=== PATIENT | female | born 1975 | race Caucasian/White ===

== ENCOUNTER → 2021-01-28 02:41 | Outpatient (CLI) | payer OTHER, SELFPAY ==
[2021-01-28 19:36] LABS: SARS-CoV-2 RNA PCR Negative
== END ==
PROVIDERS: Visit Provider Obstetrics & Gynecology Gynecology
DX: R68.89 Other general symptoms and signs (principal); Z20.822 Contact with and (suspected) exposure to COVID-19
CPT/HCPCS: C9803; U0003; U0005

== ENCOUNTER 2021-01-31 02:11 | Day surgery (SDC) | payer OTHER, SELFPAY ==
[2021-01-19 10:41] VITALS: BMI 38.9
--- NOTE | 2021-01-31 07:26 | WPDHPUPDATE1 ---
History and Physical Update Update Date/Time: 01/31/21 07:26 History and Physical has been reviewed, including an updated exam of the patient. There are NO changes in the patient's condition. Risks, benefits, and alternatives have been discussed and questions answered. Patient agrees to proceed with procedure.
--- NOTE | 2021-01-31 07:26 | PM.HPGS ---
History of Present Illness History of Present Illness Consent: Risks, benefits, and alternatives have been discussed and questions answered. Patient agrees to proceed with procedure. Chief complaint: menorrhagia with anemia Narrative: Kimberley Lewis is a 45 year old female with prolonged bleeding for approximately 12-14 days at a time. Cycles are very heavy with large clots. Hemoglobin in October was the 8.6 per her primary physician repeat in late December was 13.3. Pelvic ultrasound was performed and intramural fibroids were noted no subserosal ones or submucosal ones are indicated. It is recommended to proceed with hysteroscopy for further evaluation. Risks of infection, bleeding, and perforation were reviewed. If fibroid is present submucosally the risk of fluid imbalance is also discussed. Patient voices understanding and agrees to proceed. Review of Systems Review of Systems: Narrative: not repeated day of surgery; patient states no changes in status PMFSH Past Medical History Medical History (Updated 01/31/21 @ 07:32 by Cindy Bo MD) Graves disease Hyperlipidemia (normal spontaneous vaginal delivery) Sleep apnea Surgical History Surgical History (Updated 01/31/21 @ 07:31 by Cindy Bo MD) S/P tonsillectomy Status post left breast lumpectomy Social History Social History Smoking status: Never smoker Living arrangements: with family Meds Home Medications and Allergies Home Medications Medication Instructions Recorded Confirmed Type calcium carbonate [Gaurav-500] 500 mg PO DAILY 01/19/21 01/19/21 History cholecalciferol (vitamin D3) 50 mcg PO DAILY 01/19/21 01/19/21 History [Vitamin D3] ferrous sulfate [FeroSul] 975 mg PO TID 01/19/21 01/19/21 History methimazole 5 mg PO EVERY OTHER DAY 01/19/21 01/19/21 History multivitamin 1 tablet PO DAILY 01/19/21 01/19/21 History Allergies Allergy/AdvReac Type Severity Reaction Status Date / Time sulfacetamide Allergy Intermediate Vomiting Verified 01/19/21 10:50 [From Sulfamide] Exam Const: General: comfortable and no acute distress : External Female Exam: normal external appearance Speculum Exam - Vagina: normal appearance of the vagina and vaginal bleeding Speculum Exam - Cervix: normal appearance of the cervix Bimanual exam- vagina & uterus: normal bimanual exam Bimanual Exam- Adnexa, other: normal adnexae Assessment and Plan Assessment and plan (1) Menorrhagia: Code(s): N92.0 - Excessive and frequent menstruation with regular cycle Status: Acute Assessment and Plan: plan to proceed with hysteroscopy and D&C
[2021-01-31] MEDS: ACETAMINOPHEN 500 MG TABLET 1000 MG PO (07:52)
--- NOTE | 2021-01-31 08:10 | WPDANESEPPF ---
Anes - Initial Pre Proc Eval Procedure: Operation Date: 01/31/21 09:00 Proposed Procedures p Hysteroscopy Dilation and Curettage With Possible Myosure - Cindy Bo MD Date/Time: 01/31/21 08:10 Surgeon: Cindy Bo MD Pre Op Diagnosis: menorrhagia with anemia Patient Data Age: 45 Gender: F Height: 1.6 m Weight: 99.79 kg Allergies Allergy/AdvReac Type Severity Reaction Status Date / Time sulfacetamide Allergy Intermediate Vomiting Verified 01/19/21 10:50 [From Sulfamide] Home Medications Medication Instructions Recorded Confirmed Type calcium carbonate [Gaurav-500] 500 mg PO DAILY 01/19/21 01/19/21 History cholecalciferol (vitamin D3) 50 mcg PO DAILY 01/19/21 01/19/21 History [Vitamin D3] ferrous sulfate [FeroSul] 975 mg PO TID 01/19/21 01/19/21 History methimazole 5 mg PO EVERY OTHER DAY 01/19/21 01/19/21 History multivitamin 1 tablet PO DAILY 01/19/21 01/19/21 History Patient hx anesthesia problems: none Family hx anesthesia problems: none PMFSH Past Medical History Medical History (Updated 01/31/21 @ 08:12 by Mitchell Shirley MD) Chronic GERD Graves disease Hyperlipidemia Menorrhagia (normal spontaneous vaginal delivery) Obesity Sleep apnea Surgical History Surgical History (Updated 01/31/21 @ 07:31 by Cindy Bo MD) S/P tonsillectomy Status post left breast lumpectomy Social History Social History Smoking status: Never smoker Living arrangements: with family Anes - Eval Final PreProcedure Day of Procedure 01/31/21 08:10 Patient weight: obese Heart: regular rate and rhythm Lungs: clear to auscultation and normal air movement Airway: Mallampati scale class II Neurological: alert and oriented Last oral intake: >/= 8 hours ASA classification: III Emergent: no Anesthetic plan: proceed Anesthesia type and monitoring: general GIVS and LMA Informed Consent: The patient's anesthetic plan and its attendant risks and benefits were discussed with the patient/family/POA. Questions were solicited and answers provided to the satisfaction of the patient/family/POA.
[2021-01-31 08:30] VITALS: BP 130/80; PULSE 88; RESP 16; TEMP 37.2; O2SAT 99
--- NOTE | 2021-01-31 09:50 | PM.PROC ---
Procedure Note - Detailed Date of procedure: 01/31/21 Pre-op diagnosis: menorrhagia with anemia Post-op diagnosis: same Procedure performed: D and C hysteroscopy Description of procedure: The patient is taken to the operating room and placed under anesthesia in the dorsal lithotomy position. She is prepped and draped in the usual sterile fashion. [facility] speculum was placed in the vagina and the cervix is grasped on the anterior lip with a tenaculum. The cervix was injected with 1% lidocaine in each quadrant. The uterus is sounded to 10-1/2cm. The cervix is serially dilated with Hegars. The diagnostic hysteroscope is placed with the stated findings. The diagnostic hysteroscope was removed and the sharp curette is used to sharply curette the endometrium until a good uterine cry was noted in all areas. A large amount of material was obtained consistent with a secretory appearance. All instruments are removed. Sponge, needle, and instrument counts are correct per the OR staff. Patient was awakened from anesthesia and taken to recovery in stable condition. Anesthesia: MAC and local Surgeon: Cindy Bo MD Estimated blood loss (mL): 5 Drains: No Packing: No Pathology: yes (Endometrial curettings) Complications: No immediate complications Condition: stable Disposition: PACU Findings: The uterus sounds to 10 in the hip cm and the endometrium appears grossly secretory. No discrete lesions are noted.
[2021-01-31 09:52] VITALS: BP 124/70; PULSE 72; RESP 20
[2021-01-31] MEDS: LACTATED RINGERS 1,000 ML 30 ML IV CONT (09:52)
[2021-01-31 10:20] VITALS: BP 134/65; PULSE 77; RESP 20
[2021-01-31 10:50] VITALS: BP 122/75; PULSE 72; RESP 20
== END 2021-01-31 11:00 | disposition home or self-care (01) ==
PROVIDERS: Visit Provider Obstetrics & Gynecology Gynecology
PROC: 0U5B8ZZ Destruction of Endometrium, Via Natural or Artificial Opening Endoscopic (ICD-10-PCS; CPT 58563; principal; 2021-01-31 09:00)
DX: N92.0 Excessive and frequent menstruation with regular cycle (principal); D64.9 Anemia, unspecified; K21.9 Gastro-esophageal reflux disease without esophagitis; E78.5 Hyperlipidemia, unspecified; G47.30 Sleep apnea, unspecified; E05.00 Thyrotoxicosis with diffuse goiter without thyrotoxic crisis or storm; E66.9 Obesity, unspecified; Z68.39 Body mass index [BMI] 39.0-39.9, adult
CPT/HCPCS: 58558; 88305; A9270; J2250; J2704; J3010; J7030; J7120

== ENCOUNTER 2021-04-22 08:09 | Outpatient (CLI) | payer OTHER, SELFPAY ==
[2021-04-22 08:21] LABS: Hematocrit 42.1 % (37.0-47.0); Hemoglobin 13.7 g/dL (12.0-15.0)
== END 2021-04-22 08:10 | disposition home or self-care (01) ==
LOC: ANHLAB 08:11
PROVIDERS: Visit Provider Anesthesiology
DX: Z01.818 Encounter for other preprocedural examination (principal); N92.0 Excessive and frequent menstruation with regular cycle; D64.9 Anemia, unspecified
CPT/HCPCS: 36415; 85014; 85018

== ENCOUNTER 2021-04-25 00:21 | Day surgery (SDC) | payer OTHER, SELFPAY ==
[2021-04-19 13:47] VITALS: BMI 39.0
--- NOTE | 2021-04-22 18:10 | WPDANESEPP ---
Anes - Eval Pre Procedure Procedure: Operation Date: 04/25/21 07:30 Proposed Procedures p Hysteroscopy With Maday Ablation - Cindy Bo MD Date/Time: 04/22/21 18:10 Pre Op Diagnosis: menorrhagia Patient Data Age: 45 Gender: F Height: 1.6 m Weight: 100 kg Allergies Allergy/AdvReac Type Severity Reaction Status Date / Time sulfacetamide AdvReac Intermediate Vomiting Verified 01/31/21 09:50 [From Sulfamide] Home Medications Medication Instructions Recorded Confirmed Type calcium carbonate [Gaurav-500] 500 mg PO DAILY 01/19/21 04/19/21 History cholecalciferol (vitamin D3) 50 mcg PO DAILY 01/19/21 04/19/21 History [Vitamin D3] ferrous sulfate [FeroSul] 325 mg PO TID 01/19/21 04/19/21 History methimazole 5 mg PO EVERY OTHER DAY 01/19/21 04/19/21 History multivitamin 1 tablet PO DAILY 01/19/21 04/19/21 History Patient hx anesthesia problems: none Family hx anesthesia problems: none PMFSH Past Medical History Medical History (Updated 04/22/21 @ 18:11 by Farhad Tao DO) Chronic GERD Graves disease Hyperlipidemia Menorrhagia (normal spontaneous vaginal delivery) Obesity Sleep apnea untreated Surgical History Surgical History (Updated 01/31/21 @ 07:31 by Cindy Bo MD) S/P tonsillectomy Status post left breast lumpectomy Social History Social History Smoking status: Never smoker Second hand tobacco smoke exposure: No Substance use: never Substance use type: does not use Gender identity (if verbalized by the patient): Female Spiritual care concerns: No Exam Day of Procedure 04/22/21 18:10
[2021-04-25 06:39] VITALS: BP 121/81; PULSE 83; RESP 16; TEMP 36.6; O2SAT 98
[2021-04-25] MEDS: ACETAMINOPHEN 500 MG TABLET 1000 MG PO (06:48)
--- NOTE | 2021-04-25 06:55 | P.PNAN_ITS ---
Anes - Eval Final PreProcedure Day of Procedure 04/25/21 06:55 Patient weight: obese Heart: regular rate and rhythm Lungs: clear to auscultation Airway: Mallampati scale class II Neurological: alert and oriented Last oral intake: >/= 8 hours ASA classification: III Emergent: no Anesthetic plan: proceed Anesthesia type and monitoring: general GIVS and standard monitoring Informed Consent: The patient's anesthetic plan and its attendant risks and b enefits were discussed with the patient/family/POA. Questions were solicited and answers provided to the satisfaction of the patient/family/POA.
[2021-04-25] MEDS: LACTATED RINGERS 1,000 ML 30 ML IV CONT (07:08)
--- NOTE | 2021-04-25 07:12 | WPDHPUPDATE1 ---
History and Physical Update Update Date/Time: 04/25/21 07:12 History and Physical has been reviewed, including an updated exam of the patient. There are NO changes in the patient's condition. Risks, benefits, and alternatives have been discussed and questions answered. Patient agrees to proceed with procedure.
--- NOTE | 2021-04-25 07:12 | PM.HPGS ---
History of Present Illness History of Present Illness Consent: Risks, benefits, and alternatives have been discussed and questions answered. Patient agrees to proceed with procedure. Chief complaint: menorrhagia Narrative: Kimberley Lewis is a 45 year old female With menorrhagia. The patient has had anemia with a hemoglobin of 8.6 in November 07 this has since improved to 13. cycles are long lasting 12 to 14 days and heavy saturating in extra large pad every 2 hours. She passes large clots up to half-dollar size. The patient had a D&C hysteroscopy which revealed benign endometrium. Options were reviewed and the patient has elected to proceed with endometrial ablation. Risks infection, bleeding, perforation, and failure were reviewed. Success was reviewed with the patient and she agrees to proceed. Review of Systems Review of Systems: not repeated day of surgery; patient states no changes in status PMFSH Past Medical History Medical History (Updated 04/25/21 @ 07:15 by Cindy Bo MD) Chronic GERD Graves disease Hyperlipidemia Menorrhagia (normal spontaneous vaginal delivery) Obesity Sleep apnea untreated Status post hysteroscopy Surgical History Surgical History (Updated 01/31/21 @ 07:31 by Cindy Bo MD) S/P tonsillectomy Status post left breast lumpectomy Social History Social History Smoking status: Never smoker Second hand tobacco smoke exposure: No Substance use: never Substance use type: does not use Living arrangements: with family Gender identity (if verbalized by the patient): Female Sexual Orientation (if Verbalized by the Patient): Straight or Heterosexual Spiritual care concerns: No Meds Home Medications and Allergies Home Medications Medication Instructions Recorded Confirmed Type calcium carbonate [Gaurav-500] 500 mg PO DAILY 01/19/21 04/25/21 History cholecalciferol (vitamin D3) 50 mcg PO DAILY 01/19/21 04/25/21 History [Vitamin D3] ferrous sulfate [FeroSul] 325 mg PO TID 01/19/21 04/25/21 History methimazole 5 mg PO EVERY OTHER DAY 01/19/21 04/25/21 History multivitamin 1 tablet PO DAILY 01/19/21 04/25/21 History Allergies Allergy/AdvReac Type Severity Reaction Status Date / Time sulfacetamide AdvReac Intermediate Vomiting Verified 04/25/21 06:45 [From Sulfamide] Exam Const: General: no acute distress GI: GI Palp: No abdominal tenderness : External Female Exam: normal external appearance Speculum Exam - Vagina: normal appearance of the vagina Speculum Exam - Cervix: normal appearance of the cervix Bimanual exam- vagina & uterus: normal bimanual exam Assessment and Plan Assessment and plan (1) Menorrhagia: Code(s): N92.0 - Excessive and frequent menstruation with regular cycle Status: Acute Assessment and Plan: Plan to proceed with Maday endometrial ablation
[2021-04-25] MEDS: KETOROLAC 30 MG/ML VIAL (*BKC) IV PUSH (07:35)
--- NOTE | 2021-04-25 07:50 | W.PM.PROC2 ---
Procedure Note - Detailed Date of Procedure 04/25/21 Pre-op Diagnosis menorrhagia Post-op Diagnosis same Procedure Performed Maday endometrial ablation Surgeon Cindy Bo MD Anesthesia MAC and local Findings uterus sounds to 9-1/2cm and is actively bleeding no discrete masses are noted Description of Procedure the patient was taken to the operating room and placed under anesthesia in the dorsal lithotomy position. She was prepped and draped in the usual sterile fashion. The bivalve speculum was placed in the vagina and the cervix is grasped on the anterior lip with a tenaculum. The cervix is injected with 1% lidocaine in each quadrant. The uterus is sounded to 9.5cm. The cervix is serially dilated with Hegar. The diagnostic hysteroscope is placed and the stated findings were noted. The hysteroscope was removed. The ablation device is opened and placed and set at 6cm. Cavity assessment passed on the 1st attempt. Treatment cycle lasted the full 2minutes. The device is removed and the hysteroscope replaced showing ablation effect noted. All instruments are removed. Sponge, needle, and instrument counts are correct per the OR staff. Patient is awakened from anesthesia and being taken to recovery in stable condition. Estimated Blood Loss 5 Drains No Packing No Pathology none sent Complications No immediate complications Condition stable Disposition PACU
[2021-04-25 07:55] VITALS: BP 111/54; PULSE 72; RESP 14; O2SAT 96
[2021-04-25 08:25] VITALS: BP 114/65; PULSE 62; RESP 16; O2SAT 97
[2021-04-25 08:55] VITALS: BP 108/64; PULSE 60; RESP 16
== END 2021-04-25 09:11 | disposition home or self-care (01) ==
PROVIDERS: Visit Provider Obstetrics & Gynecology Gynecology
PROC: 0U5B8ZZ Destruction of Endometrium, Via Natural or Artificial Opening Endoscopic (ICD-10-PCS; CPT 58563; principal; 2021-04-25 07:30)
DX: N92.0 Excessive and frequent menstruation with regular cycle (principal); E78.5 Hyperlipidemia, unspecified; E05.00 Thyrotoxicosis with diffuse goiter without thyrotoxic crisis or storm; G47.30 Sleep apnea, unspecified; K21.9 Gastro-esophageal reflux disease without esophagitis; E66.9 Obesity, unspecified; Z68.38 Body mass index [BMI] 38.0-38.9, adult
CPT/HCPCS: 58563; A9270; J1885; J2250; J2405; J2704; J3010; J7030; J7120